=== PATIENT | male | born 1990 | race Two or more races ===

== ENCOUNTER 2016-08-28 12:19 | Emergency (ER) | payer MEDICAID ==
[~2016-08-28] VITALS: Ht 175.3 cm; Wt 167.4 kg
[2016-08-28 17:03] VITALS: BP 130/79
== END 2016-08-28 17:03 | disposition home or self-care (01) ==
LOC: ED 12:19
DX: T15.01XA Foreign body in cornea, right eye, initial encounter (principal); F17.200 Nicotine dependence, unspecified, uncomplicated; X58.XXXA Exposure to other specified factors, initial encounter; Y93.89 Activity, other specified; Y92.89 Other specified places as the place of occurrence of the external cause; Y99.8 Other external cause status
CPT/HCPCS: 90715; 99406